=== PATIENT | female | born 1965 | race Caucasian/White ===

== ENCOUNTER 2024-10-17 10:00 | Emergency (ER) | payer OTHER ==
[~2024-10-17] VITALS: Ht 154.9 cm; Wt 54.5 kg
[2024-10-17] MEDS ORDERED: antidepressants PO (10:07)
[2024-10-17 10:09] VITALS: TEMP 98
[2024-10-17 11:15] VITALS: BP 133/74; PULSE 79; RESP 17; O2SAT 99
[2024-10-17 11:41] LABS: COVID AG,FIA SOURCE NASAL SWAB
[2024-10-17] MEDS: CEFDINIR 300 MG CAPSULE PO ONE (11:45)
[2024-10-17] MEDS ORDERED: CEFD300C18 PO (12:14)
[2024-10-17 12:17] LABS: INFLUENZA TYPE A NEGATIVE FOR TYPE A (NEGATIVE); INFLUENZA TYPE B NEGATIVE FOR TYPE B (NEGATIVE); SARS-COV2 (COVID) ANTIGEN,FIA Negative (Negative)
== END 2024-10-17 12:33 | disposition home or self-care (01) ==
LOC: EMS 10:06
DX: H66.91 Otitis media, unspecified, right ear (principal); H00.15 Chalazion left lower eyelid; F32.A Depression, unspecified; Z88.0 Allergy status to penicillin; Z20.822 Contact with and (suspected) exposure to COVID-19; W57.XXXA Bitten or stung by nonvenomous insect and other nonvenomous arthropods, initial encounter; Y93.89 Activity, other specified; Y92.89 Other specified places as the place of occurrence of the external cause; Y99.8 Other external cause status
CPT/HCPCS: 87804; 99283